=== PATIENT | female | born 1945 | race Caucasian/White ===

== ENCOUNTER 2020-07-03 07:42 | Emergency (ER) | payer OTHER, MEDICAID ==
[~2020-07-03] VITALS: Ht 165.1 cm; Wt 89.6 kg
[2020-07-03 07:42] VITALS: BP 107/49
[~2020-07-03 07:42] MED LIST: GEMF600T5 PO; ISOS10TA9 PO; METO25TA PO; OMEP40EC24 PO; SIMV10TA1 PO
--- NOTE | 2020-07-03 07:42 | NUR ---
75 YO F BIBA FOR C/C OF RESPIRATORY ARREST. PT ARRIVES TO ER WITH [facility] PT AT 56% O2 PER PULSE OX. PER REPORT PT WAS FOUND UNRESPONSIVE IN BED BY FAMILY WITH MINIMAL RESPIRATIONS. PT WAS DX WITH COVID 19 PNA ON 05/14 AND WAS HOSPITALIZED AT [facility] FOR COVID 19 AND WAS RECENTLY DISCHARGED ON 07/03. LUNG SOUNDS DIMINSHED THROUGHOUT. S1S2 HEARD. PT PLACED ON VICE PRESIDENT PHARMACY/PULSE OX/AND DEFIB MONITOR. CRASH CART AT BEDSIDE. MED HX:LUPUS, HTN, PNEUMONIA, COVID 19 DX ON 05/14 [facility]
--- NOTE | 2020-07-03 07:42 | NUR ---
5251 RT, CHARGE NURSE, 3 RNS, AND ERMD CALLED TO BEDSIDE BEFORE AMBULANCE ARRIVED WITH PT
--- NOTE | 2020-07-03 07:42 | NUR ---
Patient BIBA ALS accompanied by Sima SANDOVAL, transferred to bed 10. RN evaluating the patient at bedside.
--- NOTE | 2020-07-03 07:43 | NUR ---
Dr. Pandya is evaluating the patient at bedside.
[2020-07-03] MEDS ORDERED: INTUBATION KIT MC ONE (07:46)
--- NOTE | 2020-07-03 07:52 | NUR ---
ERMD INTUBATED PT WITH A 7.5 INTUBATION TUBE, 23 CM AT THE LIP.
[2020-07-03] MEDS ORDERED: fentaNYL citrate 0.05 MG/ML VIAL ONE (07:54)
[2020-07-03] MEDS ORDERED: LORazepam 2 MG/ML VIAL ONE (07:54)
[2020-07-03] MEDS ORDERED: PROPOFOL 1000 MG/100 ML PREMIX 100 ML IV ONE (07:55)
[2020-07-03] MEDS: fentaNYL citrate 0.05 MG/ML VIAL IVP ONE (08:00)
[2020-07-03] MEDS: LORazepam 2 MG/ML VIAL IVP ONE (08:00)
[2020-07-03] MEDS: PROPOFOL 1000 MG/100 ML PREMIX 100 ML IV ONE (08:00)
--- NOTE | 2020-07-03 08:00 | NUR ---
# 16 FR June catheter utilizing sterile technique. Immediate return of 100 ml CARMEN urine noted. Bedside drainage bag placed below level of bladder. Urine sample collected and sent to lab. Pt tolerated procedure WELL.
--- NOTE | 2020-07-03 08:10 | NUR ---
14 UZBEK OG TUBE PLACED AND PUT ON CONTINUOUS SUCTION PER ERMD VERBAL ORDER.
--- NOTE | 2020-07-03 08:11 | NUR ---
radiation control technician at bedside.
[2020-07-03 08:13] LABS: BASOPHILS # (AUTO) 0.1 K/uL (0.00-0.22); BASOPHILS % (AUTO) 0.4 % (0.0-2.0); EOSINOPHILS % (AUTO) 0.1 % (0.0-4.0); HEMATOCRIT 32.7 % (36-48); HEMOGLOBIN 10.8 g/dL (12.0-16.0); LYMPHOCYTES # (AUTO) 1.5 K/uL (2.5-16.5); LYMPHOCYTES % (AUTO) 9.3 % (20.5-51.1); MEAN CORPUSCULAR HEMOGLOBIN 31 pg (27-31); MEAN CORPUSCULAR HGB CONC 33 g/dL (33-37); MEAN CORPUSCULAR VOLUME 94.1 fL (80-94); MONOCYTES # (AUTO) 0.9 K/uL (0.8-1.0); MONOCYTES % (AUTO) 5.3 % (1.7-9.3); NEUTROPHILS # (AUTO) 13.9 K/uL (1.8-7.7); NEUTROPHILS % (AUTO) 84.9 % (42.2-75.2); PLATELET COUNT (AUTO) 259 K/uL (140-450); RED BLOOD CELL COUNT(AUTO) 3.47 MIL/uL (4.20-5.40); RED CELL DISTRIBUTION WIDTH 17.7 % (11.6-13.7); WHITE BLOOD COUNT (AUTO) 16.4 K/uL (4.8-10.8)
[2020-07-03] MEDS ORDERED: ALBUTEROL 0.083% 2.5 MG/3 ML NEBU INH ONE (08:16)
--- NOTE | 2020-07-03 08:17 | NUR ---
PT WENT INTO CARDIAC ARREST, SEE CODE BLUE SHEET.
--- NOTE | 2020-07-03 08:17 | NUR ---
CPR initiated by [facility] staff.
[2020-07-03] MEDS ORDERED: DOPPLER MC ONE ×2 (08:18→08:20)
[2020-07-03 08:28] LABS: PROTHROMBIN TIME 10.4 secs (10.8-13.4)
[2020-07-03 08:32] LABS: ALBUMIN 2.4 g/dL (3.4-5.0); ANION GAP 9.8 (8-16); ASPARTATE AMINOTRANSFERASE 259 U/L (15-37); CARBON DIOXIDE 34.6 mmol/L (21-32); CHLORIDE 87 mmol/L (98-107); CREATININE 0.5 mg/dL (0.6-1.3); GLUCOSE 88 mg/dL (74-106); LIPASE 64 U/L (73-393); SODIUM SERUM 127 mmol/L (136-145); TOTAL BILIRUBIN 1.9 mg/dL (0.0-1.0); UREA NITROGEN, BLOOD 17 mg/dL (7-18)
[2020-07-03 08:35] LABS: POTASSIUM 4.4 mmol/L (3.5-5.1)
[2020-07-03] MEDS: NACL 0.9% 1,000 ML IV ONE (08:37)
[2020-07-03] MEDS: SUCCINYLCHOLINE CHLORIDE 200 MG/10 ML VIAL IVP ONE (08:40)
[2020-07-03] MEDS: DEXAMETHASONE 10 MG/ML VIAL IVP ONE (08:40)
[2020-07-03] MEDS: ETOMIDATE 20 MG/10 ML VIAL IVP ONE (08:40)
[2020-07-03] MEDS: PIPERACILLIN/TAZOBACTAM 3.375 GM in DEXTROSE 5% 50 ML IV ONE (08:40)
--- NOTE | 2020-07-03 08:42 | NUR ---
CPR initiated by [facility] staff again.
--- NOTE | 2020-07-03 08:47 | NUR ---
PT WENT INTO CARDIAC ARREST, SEE CODE BLUE SHEET.
[2020-07-03] MEDS ORDERED: PIPERACILLIN/TAZOBACTAM 3.375 GM VIAL IV ONE (08:51)
[2020-07-03 08:59] LABS: APPEARANCE,URINE CLOUDY (CLEAR); BILIRUBIN,URINE 2+ (NEGATIVE); BLOOD, URINE 1+ (NEGATIVE); COLOR,URINE ORANGE (YELLOW); LEUKOCYTE ESTERASE ,URINE 1+ (NEGATIVE); NITRITE, URINE NEGATIVE (NEGATIVE); UGLUCOSE NEGATIVE (NEGATIVE)
--- NOTE | 2020-07-03 08:59 | NUR ---
Family at bedside with Dr. Pandya.
[2020-07-03 09:02] VITALS: BP 50/30
[2020-07-03] MEDS: NOREPINEPHRINE 4 MG in DEXTROSE 5% 250 ML IV SCH (09:02)
--- NOTE | 2020-07-03 09:07 | NUR ---
TIME OF PRONOUNCED BY DR. GARCIA.
[2020-07-03 09:18] LABS: YEAST,URINE Moderate /HPF (None Seen)
--- NOTE | 2020-07-03 09:20 | NUR ---
SPOKE WITH MINA AT [facility]ONERS OFFICE. EXPECTING CALL BACK.
--- NOTE | 2020-07-03 09:21 | NUR ---
SPOKE WITH ARCADIO AT [facility]. Addendum: 07/03/20 at 925 by [email or web address] SPOKE WITH ARCADIO AT [facility], BODY WAS RELEASED TO CORONERS. REFERENCE #[id number]
--- NOTE | 2020-07-03 09:56 | NUR ---
PTS BODY RELEASED BY THE [facility]. SPOKE WITH BRANDENUTBinu HAAS. CASE #[id number]
--- NOTE | 2020-07-03 10:38 | NUR ---
PTS BODY MOVED TO [facility] [place], PTS CHART TAKEN TO [facility].
== END 2020-07-03 09:07 ==
LOC: MED 07:42
DX: I46.9 Cardiac arrest, cause unspecified (principal); J18.9 Pneumonia, unspecified organism; R77.8 Other specified abnormalities of plasma proteins; R74.02 Elevation of levels of lactic acid dehydrogenase [LDH]; E87.1 Hypo-osmolality and hyponatremia; Z20.822 Contact with and (suspected) exposure to COVID-19
CPT/HCPCS: 31500; 36415; 71045; 80053; 81001; 83605; 83690; 83880; 84484; 85025; 85610; 87040; 87086; 87426; 93005; 96361; 96365; 96375; 99291; J2543; J2704; J7613; J2060; J3010